=== PATIENT | male | born 1965 | race Caucasian/White ===

== ENCOUNTER 2016-03-06 12:43 | Day surgery (SDC) | payer BC ==
[~2016-03-06] VITALS: Ht 160 cm; Wt 71.9 kg
[2016-03-06] MEDS ORDERED: GRALISE300 MG PO (13:37)
[2016-03-06] MEDS ORDERED: MS CONTIN,ORAMO15 M1 PO (13:39)
[2016-03-06] MEDS ORDERED: ZOHYDRO ER10 M1 PO (13:40)
[2016-03-06] MEDS ORDERED: OXCARBAZEPINE300 MG PO (13:41)
[2016-03-06] MEDS ORDERED: SKELAXIN800 MG PO (13:41)
[2016-03-06] MEDS ORDERED: CIALIS20 MG PO (13:42)
[2016-03-06] MEDS ORDERED: ZANTAC150 MG PO (13:43)
[2016-03-06] MEDS ORDERED: LEXAPRO10 MG PO (13:44)
[2016-03-06 13:59] VITALS: BP 120/73
[2016-03-06 20:54] VITALS: BP 152/94
[2016-03-07 00:16] VITALS: BP 119/68
[2016-03-07 03:31] VITALS: BP 139/86
[2016-03-07 08:15] VITALS: BP 142/87
[2016-03-07 16:30] VITALS: BP 120/73
[2016-03-07] MEDS ORDERED: HYDROCODON-ACE1 EAC9 PO (17:23)
[2016-03-07] MEDS ORDERED: DIAZEPAM5 MG PO (17:23)
== END 2016-03-07 18:00 | disposition home or self-care (01) ==
LOC: SDC 12:43 → 2SOUTH 18:17 → 3EAST 20:04
DX: M48.02 Spinal stenosis, cervical region (principal); M50.01 Cervical disc disorder with myelopathy, high cervical region; M50.30 Other cervical disc degeneration, unspecified cervical region; M54.12 Radiculopathy, cervical region; M41.9 Scoliosis, unspecified; Q76.49 Other congenital malformations of spine, not associated with scoliosis; M54.5 Low back pain; Q76.1 Klippel-Feil syndrome; M79.629 Pain in unspecified upper arm; Z87.891 Personal history of nicotine dependence
CPT/HCPCS: 72020; 76000; C1713; G0378; J0131; J0330; J0690; J1030; J1100; J1170; J1580; J2250; J2405; J2710; J2930; J3010; J3370; J3480; S0020

== ENCOUNTER 2017-07-01 14:51 | Day surgery (SDC) | payer BC ==
[~2017-07-01] VITALS: Ht 160 cm; Wt 70.0 kg
[~2017-07-01 14:51] MED LIST: CIALIS20 MG PO; DIAZEPAM5 MG PO; GRALISE300 MG PO; HYDROCODON-ACE1 EAC9 PO; LEXAPRO10 MG PO; MS CONTIN,ORAMO15 M1 PO; OXCARBAZEPINE300 MG PO; SKELAXIN800 MG PO; ZANTAC150 MG PO; ZOHYDRO ER10 M1 PO
[2017-07-01 15:28] VITALS: BP 131/75
[2017-07-01 21:45] VITALS: BP 128/74
[2017-07-02 03:45] VITALS: BP 106/72
[2017-07-02 07:55] VITALS: BP 113/63
[2017-07-02 11:38] VITALS: BP 130/72
== END 2017-07-02 13:20 | disposition home or self-care (01) ==
LOC: SDC 14:51 → 2SOUTH 19:49 → 2EAST 19:49 → 2SOUTH 19:49 → ENRESERV 20:30 → 2EAST 21:18
PROC: 01N10ZZ Release Cervical Nerve, Open Approach (ICD-10-PCS; principal; 2017-07-01)
DX: M48.03 Spinal stenosis, cervicothoracic region (principal); M54.12 Radiculopathy, cervical region; Q76.1 Klippel-Feil syndrome; M41.9 Scoliosis, unspecified; G89.29 Other chronic pain; Q60.0 Renal agenesis, unilateral; Z87.891 Personal history of nicotine dependence; R00.1 Bradycardia, unspecified
CPT/HCPCS: 72020; 76000; G0378; J0330; J0690; J1030; J1170; J2405; J2710; J2765; J2930; J3010; J3480; J7643; S0020